=== PATIENT | male | born 2000 | race Caucasian/White ===

== ENCOUNTER 2025-07-05 16:33 | Inpatient (IN) | payer OTHER ==
[~2025-07-05] VITALS: Ht 177.8 cm; Wt 89.0 kg
[2025-07-05] MEDS: NICOTINE 21 MG/24 HR 1 EA TRANSDERMAL TD ONE (17:10)
[2025-07-05 17:14] LABS: PLATELET COUNT, AUTOMATED 271 10^3/uL (150-450)
[2025-07-05 17:37] LABS: AMPHETAMINES LEVEL URINE NEGATIVE (NEGATIVE); BARBITURATES URINE NEGATIVE (NEGATIVE)
[2025-07-05 17:38] LABS: BENZODIAZEPINES URINE NEGATIVE (NEGATIVE); CANNABINOIDS URINE NEGATIVE (NEGATIVE); COCAINE METABOLITE URINE NEGATIVE (NEGATIVE); METHADONE URINE NEGATIVE (NEGATIVE); OPIATES URINE NEGATIVE (NEGATIVE); PHENCYCLIDINE URINE NEGATIVE (NEGATIVE)
[2025-07-05 17:42] LABS: ALT/SGPT 57 U/L (7.0-40); AST/SGOT 65 U/L (<34); CALCIUM LEVEL 8.3 MG/DL (8.5-10.1); CARBON DIOXIDE LEVEL 28 MMOL/L (20-31); CHLORIDE LEVEL 107 MMOL/L (98-107); CREATININE FOR GFR 1.01 MG/DL (0.70-1.30); GLOMERULAR FILTRATION RATE > 90.0 (>60); POTASSIUM SERUM 3.9 MMOL/L (3.5-5.1); SALICYLATE LEVEL < 3.0 MG/DL (<30); SODIUM LEVEL 146 MMOL/L (136-145)
[2025-07-05 18:08] LABS: ETHYL ALCOHOL (ETHANOL) 0.376 % (0.000-0.010)
[2025-07-05] MEDS: MULTIVITAMINS/MINERALS THERAP 1 TAB PO SCH (18:37)
[2025-07-05] MEDS: THIAMINE 100 MG TAB PO SCH (18:37)
[2025-07-05] MEDS: FOLIC ACID 1 MG TAB PO SCH (18:37)
[2025-07-05] MEDS: OLANZapine ORAL DISINTEGRATING TAB 5MG PO ONE (20:05)
[2025-07-06] MEDS ORDERED: HOME MED LIST COMPLETE! XX SCH (09:00)
[2025-07-06] MEDS ORDERED: IBUPROFEN 400 MG TAB PO PRN (11:45)
[2025-07-06] MEDS ORDERED: MAALOX 30 ML SUSP *UDC PO PRN (11:45)
[2025-07-06] MEDS ORDERED: OLANZapine 5 MG TAB PO PRN (11:45)
[2025-07-06] MEDS ORDERED: ACETAMINOPHEN 325 MG TAB PO PRN (11:45)
[2025-07-06] MEDS ORDERED: MOM 30 ML SUSPENSION UDC PO PRN (11:45)
[2025-07-06 14:34] VITALS: BP 141/73; TEMP 98.1; O2SAT 99
[2025-07-06] MEDS: LORazepam 1 MG TAB PO PRN (15:19)
[2025-07-06] MEDS: NICOTINE 21 MG/24 HR 1 EA TRANSDERMAL TD SCH (17:35)
[2025-07-06] MEDS: traZODone 50 MG TAB PO PRN (21:08)
[2025-07-06] MEDS: THIAMINE 100 MG TAB PO SCH (21:08)
[2025-07-06 21:09] VITALS: BP 137/76; TEMP 98.1; O2SAT 98
[2025-07-06 22:13] VITALS: BP 134/63
[2025-07-06 22:14] VITALS: BP 134/63; TEMP 97.3; O2SAT 97
[2025-07-07 06:24] VITALS: BP 137/74
[2025-07-07 06:30] VITALS: BP 134/74; TEMP 97.6; O2SAT 99
[2025-07-07] MEDS ORDERED: NICOTINE 14 MG/24 HR TRANSDERMAL TD SCH (09:00)
[2025-07-07] MEDS: MULTIVITAMINS/MINERALS THERAP 1 TAB PO SCH (09:06)
[2025-07-07] MEDS: FOLIC ACID 1 MG TAB PO SCH (09:07)
[2025-07-07 14:45] VITALS: BP 161/79; TEMP 97.9; O2SAT 99
[2025-07-07 15:04] VITALS: BP 161/79
[2025-07-07 22:22] VITALS: BP 106/66
[2025-07-08 06:35] VITALS: BP 146/84; TEMP 98.4; O2SAT 99
[2025-07-08 08:40] VITALS: BP 138/74
[2025-07-08 08:41] VITALS: BP 138/74; TEMP 98; O2SAT 99
[2025-07-08] MEDS: HALOPERIDOL 5 MG TAB PO PRN (11:16)
[2025-07-08 14:04] VITALS: BP 141/78
[2025-07-08 16:05] VITALS: BP 136/76; TEMP 97.6; O2SAT 99
[2025-07-09 06:28] VITALS: BP 137/65
[2025-07-09 06:33] VITALS: BP 137/65; TEMP 97.8; O2SAT 100
== END 2025-07-09 10:06 | disposition home or self-care (01) | DRG 882 ==
LOC: M ED 16:33 → M ED INP 07-06 11:42 → M PSY 07-06 14:34
PROVIDERS: ADMIT Internal Medicine; ATTEND Internal Medicine
DX: F43.23 Adjustment disorder with mixed anxiety and depressed mood (principal); R45.851 Suicidal ideations; Z63.0 Problems in relationship with spouse or partner; Z65.3 Problems related to other legal circumstances; F10.220 Alcohol dependence with intoxication, uncomplicated; G47.00 Insomnia, unspecified; F17.200 Nicotine dependence, unspecified, uncomplicated